=== PATIENT | male | born 1950 | race Caucasian/White ===

== ENCOUNTER → 2019-04-06 | Outpatient (CLI) | payer MEDICARE, OTHER ==
[2019-04-06 09:23] LABS: ABSOLUTE EOSINOPHILS # (AUTO) 0.2 10^3/uL (0.0-0.6); ABSOLUTE LYMPHOCYTES (AUTO) 1.8 10^3/uL (0.5-4.7); ABSOLUTE MONOCYTES (AUTO) 0.5 10^3/uL (0.1-1.4); ABSOLUTE NEUT (AUTO) 3.6 10^3/uL (1.7-8.2); BASOPHILS % (AUTO) 0.3 % (0-2); EOSINOPHILS % (AUTO) 2.8 % (0-6); HEMATOCRIT 44.5 % (37.9-51.0); HEMOGLOBIN 15.2 g/dL (13.5-17.0); MEAN CORPUSCULAR HEMOGLOBIN 29.1 pg (27.0-33.4); MEAN CORPUSCULAR VOLUME 86 fl (80-97); MONOCYTES % (AUTO) 8.2 % (3-13); PLATELET COUNT 235 10^3/uL (150-450); RED BLOOD COUNT 5.21 10^6/uL (4.35-5.55); RED CELL DISTRIBUTION WIDTH 13.5 % (11.5-14.0); SEGMENTED NEUTROPHILS % (AUTO) 59.7 % (42-78); TOTAL CELLS COUNTED % (AUTO) 100 %
--- NOTE | 2019-04-06 09:27 | RADIOLOGY REPORT (SQ) ---
EXAM DESCRIPTION: CHEST PA/LATERAL COMPLETED DATE/TIME: 04/06/2019 9:13 am REASON FOR STUDY: PRE-OP COMPARISON: None. EXAM PARAMETERS: NUMBER OF VIEWS: two views TECHNIQUE: Digital Frontal and Lateral radiographic views of the chest acquired. RADIATION DOSE: NA LIMITATIONS: none FINDINGS: LUNGS AND PLEURA: No opacities, masses or pneumothorax. No pleural effusion. MEDIASTINUM AND HILAR STRUCTURES: No masses or contour abnormalities. HEART AND VASCULAR STRUCTURES: Heart normal size. No evidence for failure. BONES: No acute findings. HARDWARE: None in the chest. OTHER: No other significant finding. IMPRESSION: NO SIGNIFICANT RADIOGRAPHIC FINDING IN THE CHEST. TECHNICAL DOCUMENTATION: JOB ID: [id number] [employer]- All Rights Reserved Reading location - IP/workstation name: [email or web address]
[2019-04-06 09:37] LABS: APPEARANCE,URINE CLEAR; BILIRUBIN,URINE NEGATIVE (NEGATIVE); COLOR,URINE YELLOW; GLUCOSE, URINE NEGATIVE (NEGATIVE); KETONES,URINE NEGATIVE (NEGATIVE); LEUKOCYTE ESTERASE,URINE NEGATIVE (NEGATIVE); NITRITE,URINE NEGATIVE (NEGATIVE); PROTEIN,URINE NEGATIVE (NEGATIVE); URINE SPECIFIC GRAVITY 1.012; UROBILINOGEN,URINE NEGATIVE mg/dL (<2.0)
[2019-04-06 09:43] LABS: ANION GAP 8 (5-19); BLOOD UREA NITROGEN 12 mg/dL (7-20); CALCIUM 9.8 mg/dL (8.4-10.2); CARBON DIOXIDE 27 mmol/L (22-30); CHLORIDE 104 mmol/L (98-107); GLUCOSE 92 mg/dL (75-110); POTASSIUM 4.6 mmol/L (3.6-5.0)
--- NOTE | 2019-04-06 13:28 | EKG REPORT ---
SEVERITY:- NORMAL ECG - SINUS RHYTHM : Confirmed by: Ralph Corona MD 06-Apr-2019 13:27:27
== END ==
LOC: OD 08:43
PROVIDERS: ATTEND Orthopaedic Surgery
DX: Z01.812 Encounter for preprocedural laboratory examination (principal); Z01.811 Encounter for preprocedural respiratory examination; Z01.810 Encounter for preprocedural cardiovascular examination; M16.12 Unilateral primary osteoarthritis, left hip
CPT/HCPCS: 36415; 71046; 80048; 81001; 85025; 93005; 93010

== ENCOUNTER 2019-05-02 06:25 | Inpatient (IN) | payer MEDICARE, OTHER ==
[~2019-05-02 06:25] MED LIST: BUPIVACAINE INJ/PF LIPOSOME/PF 266 MG/20 ML SDV INJ PRN; CEFAZOLIN INJ 1 GM VIAL IV PRN; IBUPROFEN 800 MG in NORMAL SALINE 250 ML IV PRN; LACTATED RINGERS 1000 ML IV PRN; LIDOCAINE 0.5% INJ-PF (5 MG/ML) 50 ML SDV SUBCUT PRN; OXYCODONE HCL SR 10 MG TABLET PO PRN; PANTOPRAZOLE SODIUM 20 MG TABLET.DR PO PRN; VANCOMYCIN HCL 1,000 MG in DEXTROSE 5%-WATER 250 ML IV PRN
[2019-05-02] MEDS ORDERED: OXYCODONE HCL SR 10 MG TABLET PO ONE (06:29)
[2019-05-02] MEDS ORDERED: PANTOPRAZOLE SODIUM 20 MG TABLET.DR PO ONE (06:29)
[2019-05-02] MEDS ORDERED: CEFAZOLIN INJ 1 GM VIAL ONE (06:30)
[2019-05-02] MEDS ORDERED: MIDAZOLAM 2 MG/2 ML INJ ONE (07:40)
[2019-05-02] MEDS ORDERED: DEXMEDETOMIDINE INJ 80 MCG/20 ML VIAL IV ONE (07:41)
[2019-05-02] MEDS ORDERED: PROPOFOL INJ 200 MG/20 ML VIAL IV ONE ×2 (07:41→09:38)
[2019-05-02] MEDS ORDERED: PHENYLEPHRINE HCL INJ/PF 10 MG/1 ML SDV ONE (08:13)
[2019-05-02] MEDS ORDERED: GLYCOPYRROLATE 1 MG/5 ML VIAL ONE (08:13)
[2019-05-02] MEDS ORDERED: TRANEXAMIC ACID INJ/PF 1,000 MG/10 ML SDV ONE ×2 (09:04→12:18)
[2019-05-02] MEDS ORDERED: KETAMINE HCL INJ 500 MG/10 ML VIAL ONE (09:38)
[2019-05-02] MEDS: BUPIVACAINE INJ/PF LIPOSOME/PF 266 MG/20 ML SDV ONE ×2 (09:55→10:04)
[2019-05-02] MEDS ORDERED: ZOLPIDEM TARTRATE 5 MG TABLET PO PRN (10:23)
[2019-05-02] MEDS ORDERED: RINGERS SOLUTION,LACTATED 1,000 ML IV PRN (10:23)
[2019-05-02] MEDS ORDERED: MAG HYDROX/AL HYDROX/SIMETH SUSP 30 ML UDCUP PO PRN (10:23)
[2019-05-02] MEDS ORDERED: ACETAMINOPHEN 325 MG TABLET PO PRN (10:23)
[2019-05-02] MEDS ORDERED: ONDANSETRON 4 MG TAB.RAPDIS PO PRN (10:23)
[2019-05-02] MEDS ORDERED: DIPHENHYDRAMINE HCL 50 MG/ML VIAL IV PRN ×2 (10:23→11:15)
[2019-05-02] MEDS ORDERED: ONDANSETRON HCL INJ/PF 4 MG/2 ML SDV IV PRN (10:23)
--- NOTE | 2019-05-02 10:23 | Operative Report ---
Operative Report DATE OF SURGERY: 05/02/19 PREOPERATIVE DIAGNOSIS: Left hip arthritis OPERATION: Left hip arthroplasty SURGEON: ELIAS RUBIO ANESTHESIA: Spinal TISSUE REMOVED OR ALTERED: Femoral head to pathology ESTIMATED BLOOD LOSS: 150 PROCEDURE: Implants used: Femur: [place] Accolade 2 stem, size 9 Acetabular shell: 56 mm acetabular shell Liner: 36 mm flat cross-link polyethylene liner Head: 36 mm chrome cobalt head standard neck The patient is placed in a right lateral decubitus position on the operating table. The left lower extremity and hindquarter is prepped and draped in a sterile fashion. A curvilinear incision was made over the greater trochanter a posterior approach the hip was taken. The femoral head is dislocated and the femoral neck transected using an oscillating saw. Attention was next turned to the acetabulum. Soft tissues cleared off the acetabulum using electrocautery. The acetabulum was then prepared using a series of hemispherical reamers until a 56 millimeters reamer is seated. Subsequently a 56 millimeters Racheal titanium hemispherical shell is impacted into position. A standard flat 36 millimeters cross-link liner is impacted into the shell. Attention was next turned to the femur. Access is gained to the femoral canal using a box osteotome to the piriformis fossa. The femur is then prepared using a series of broaches until a number 9 broach is seated. A trial reduction was now performed using a 36 millimeters head with standard neck. Preoperative leg length was recreated and is excellent anterior posterior stability. A decision was made to proceed with the above construct. All trial implants were removed. The wound is irrigated with pulsed lavage. A number 9 stem is impacted into the femoral canal. A trial reduction was again performed with a 36 mm head and a standard neck. Findings as previously. The hip was dislocated one last time and the final chrome-cobalt head is impacted onto the trunnion. The hip was reduced. Wound is copiously irrigated with pulsed lavage. Sent closed in layers using interrupted Vicryl followed by steve. A sterile dressing is applied and the patient's returned to recovery room in satisfactory patient.
[2019-05-02] MEDS ORDERED: MORPHINE SULFATE 10 MG/ML INJ IV PRN (11:15)
[2019-05-02] MEDS ORDERED: FENTANYL CITRATE INJ/PF 100 MCG/2 ML AMPUL IV PRN ×3 (11:15)
[2019-05-02] MEDS ORDERED: PROMETHAZINE HCL INJ 25 MG/1 ML VIAL IV PRN ×2 (11:15)
[2019-05-02] MEDS ORDERED: MEPERIDINE HCL/PF INJ 25 MG/1 ML DISP.SYRIN IV PRN (11:15)
[2019-05-02] MEDS ORDERED: TRANEXAMIC ACID INJ/PF 1,000 MG/10 ML SDV IV ONE (12:00)
[2019-05-02] MEDS: FENTANYL CITRATE INJ/PF 100 MCG/2 ML AMPUL ONE ×2 (12:10→12:25)
--- NOTE | 2019-05-02 12:41 | RADIOLOGY REPORT (SQ) ---
EXAM DESCRIPTION: PELVIS AP COMPLETED DATE/TIME: 05/02/2019 11:23 am REASON FOR STUDY: Post Op Long Cassette in PACU M16.12 UNILATERAL PRIMARY OSTEOARTHRITIS, LEFT HIP COMPARISON: None. NUMBER OF VIEWS: One view TECHNIQUE: AP Pelvis LIMITATIONS: None. FINDINGS: MINERALIZATION: Normal. HIPS: There is a left hip arthroplasty in good position. Mild to moderate degenerative joint changes are present in the right hip. No acute fracture or dislocation. PELVIS AND SACRUM: No acute fracture or dislocation. No worrisome bone lesions. PUBIS AND ISCHIUM: No acute fracture. LOWER LUMBAR SPINE: Mild degenerative changes at the lumbosacral junction. SOFT TISSUES: No findings. OTHER: No other significant finding. IMPRESSION: Left hip arthroplasty in good position. Degenerative joint disease in the right hip. L ower lumbar degenerative changes. COMMENT: Pelvic fractures are often occult on plain radiographs. If strong clinical suspicion for f racture, recommend CT or MR. TECHNICAL DOCUMENTATION: JOB ID: [id number] [employer]- All Rights Reserved Reading location - IP/workstation name: [email or web address]
[2019-05-02] MEDS: OXYCODONE HCL IR 5 MG TABLET PO PRN (15:47)
[2019-05-02] MEDS: SENNOSIDES/DOCUSATE 8.6-50 MG 1 EACH TABLET PO SCH (17:16)
[2019-05-02] MEDS: IBUPROFEN 800 MG in NORMAL SALINE 250 ML IV SCH (17:16)
[2019-05-02] MEDS: PREGABALIN 75 MG CAPSULE PO SCH (17:16)
[2019-05-02] MEDS: OXYCODONE HCL SR 10 MG TABLET PO SCH (21:19)
[2019-05-02] MEDS ORDERED: VANCOMYCIN HCL 1,000 MG in DEXTROSE 5%-WATER 250 ML IV ONE (22:23)
[2019-05-03] MEDS: IBUPROFEN 800 MG in NORMAL SALINE 250 ML IV SCH ×2 (01:12→10:28)
[2019-05-03] MEDS: OXYCODONE HCL IR 5 MG TABLET PO PRN (05:25)
[2019-05-03 05:29] LABS: HEMATOCRIT 41.3 % (37.9-51.0); HEMOGLOBIN 14.3 g/dL (13.5-17.0); MEAN CORPUSCULAR HEMOGLOBIN 29.5 pg (27.0-33.4); MEAN CORPUSCULAR HGB CONC 34.7 g/dL (32.0-36.0); MEAN CORPUSCULAR VOLUME 85 fl (80-97); PLATELET COUNT 247 10^3/uL (150-450); RED BLOOD COUNT 4.85 10^6/uL (4.35-5.55); RED CELL DISTRIBUTION WIDTH 13.3 % (11.5-14.0); WHITE BLOOD COUNT 12.6 10^3/uL (4.0-10.5)
[2019-05-03 05:57] LABS: ANION GAP 11 (5-19); BLOOD UREA NITROGEN 18 mg/dL (7-20); CALCIUM 9.5 mg/dL (8.4-10.2); CARBON DIOXIDE 24 mmol/L (22-30); CHLORIDE 101 mmol/L (98-107); GLUCOSE 126 mg/dL (75-110); POTASSIUM 4.9 mmol/L (3.6-5.0)
[2019-05-03] MEDS ORDERED: PANTOPRAZOLE SODIUM 40 MG TABLET.DR PO SCH (06:00)
--- NOTE | 2019-05-03 07:22 | PDOC DISCHARGE SUMMARY ---
Impression - Admit/DC Date/PCP Admission Date/Primary Care Provider: 05/02/19 06:25 BIPIN BRONSON MD Discharge Date: 05/03/19 - Discharge Diagnosis (1) Arthritis of left hip Is this a current diagnosis for this admission?: Yes - Assessment Summary: 68-year-old white male with progressive left hip pain and functional disability second osteoarthritis is admitted for elective left hip arthroplasty. - Additional Information Resuscitation Status: Full Code Discharge Diet: Regular Discharge Activity: Balance Activity w/Rest, No tub bath Referrals: ELIAS VILLAVICENCIO MD [ACTIVE STAFF] - 05/17/19 9:15 am Home Medications: Citalopram Hydrobromide [Celexa] 20 mg PO QPM 09/17/14 Cholecalciferol (Vitamin D3) [Vitamin D3 1000 Unit Tablet] 1,000 unit PO QPM 04/11/19 Multivit-Min/FA/Lycopen/Lutein [Centrum Silver Men Tablet] 1 tab PO QPM 04/11/19 [place]-3 Fatty Acids/Fish Oil [Fish Oil 1,000 mg Capsule] 2 cap PO QPM 04/11/19 Levothyroxine Sodium 50 mcg PO QPM 05/02/19 History of Present Illiness History of Present Illness: PEYTON KEY is a 68 year old male 68-year-old white male with progressive left hip pain and functional disability second osteoarthritis. Patient is admitted for elective left hip arthroplasty. Hospital Course Hospital Course: Patient admitted through the operating where he undergoes uncomplicated left hip arthroplasty. Is returned to floor in satisfactory condition. He seen by physical therapy. He ambulates 300 feet on the day of surgery. The first postoperative morning the patient is quite mobile on his own. His left hip dressing demonstrates 2 small areas of dried drainage. Leg lengths are equal. Distal neurovascular examination is intact. Physical Exam Vital Signs: Temp Pulse Resp BP Pulse Ox 36.3 C 73 18 116/63 96 05/03/19 02:00 05/03/19 02:00 05/03/19 02:00 05/02/19 19:57 05/03/19 02:00 Intake & Output 05/02/19 05/03/19 05/04/19 06:59 06:59 06:59 Intake Total 0 9879 Output Total 3309 Balance 0 6570 Weight 126.8 kg General appearance: PRESENT: no acute distress, mild distress Head exam: PRESENT: normocephalic Respiratory exam: PRESENT: unlabored Cardiovascular exam: PRESENT: RRR Pulses: PRESENT: +1 pedal pulses bilateral Vascular exam: PRESENT: normal capillary refill Rectal exam: PRESENT: deferred Musculoskeletal exam: PRESENT: other - As above Neurological exam: PRESENT: alert, awake, oriented to person, oriented to place, oriented to time, oriented to situation. ABSENT: motor sensory deficit Psychiatric exam: PRESENT: appropriate affect, normal mood. ABSENT: homicidal ideation, suicidal ideation Skin exam: PRESENT: dry, intact, warm. ABSENT: cyanosis, rash Results Laboratory Results: WBC 12.6 10^3/uL (4.0-10.5) H 05/03/19 05:08 RBC 4.85 10^6/uL (4.35-5.55) 05/03/19 05:08 Hgb 14.3 g/dL (13.5-17.0) 05/03/19 05:08 Hct 41.3 % (37.9-51.0) 05/03/19 05:08 MCV 85 fl (80-97) 05/03/19 05:08 MCH 29.5 pg (27.0-33.4) 05/03/19 05:08 MCHC 34.7 g/dL (32.0-36.0) 05/03/19 05:08 RDW 13.3 % (11.5-14.0) 05/03/19 05:08 Plt Count 247 10^3/uL (150-450) 05/03/19 05:08 Sodium 136.3 mmol/L (137-145) L 05/03/19 05:08 Potassium 4.9 mmol/L (3.6-5.0) 05/03/19 05:08 Chloride 101 mmol/L (98-107) 05/03/19 05:08 Carbon Dioxide 24 mmol/L (22-30) 05/03/19 05:08 Anion Gap 11 (5-19) 05/03/19 05:08 BUN 18 mg/dL (7-20) 05/03/19 05:08 Creatinine 1.12 mg/dL (0.52-1.25) 05/03/19 05:08 Est GFR ( Amer) > 60 (>60) 05/03/19 05:08 Est GFR (MDRD) Non-Af > 60 (>60) 05/03/19 05:08 Glucose 126 mg/dL (75-110) H 05/03/19 05:08 Calcium 9.5 mg/dL (8.4-10.2) 05/03/19 05:08 Blood Type A POSITIVE 05/02/19 06:57 Antibody Screen NEGATIVE 05/02/19 06:57 Impressions: Pelvis X-Ray 05/02/19 10:25 IMPRESSION: Left hip arthroplasty in good position. Degenerative joint disease in the right hip. Lower lumbar degenerative changes. Plan Plan of Treatment: Discharge home on a weightbearing as tolerated ambulatory program with physical therapy and DME. Follow-up with Dr. Villavicencio and [facility] for [facility] in 2 weeks for wound inspection. Time Spent: Less than 30 Minutes Stroke Is this a Stroke Patient?: No Stroke Pt being discharged on Anti-thrombolytic therapy?: Yes Acute Heart Failure - Is this a Heart Failure Patient?: No
[2019-05-03 07:51] VITALS: BP 129/80
[2019-05-03] MEDS: PREGABALIN 75 MG CAPSULE PO SCH (09:12)
[2019-05-03] MEDS: SENNOSIDES/DOCUSATE 8.6-50 MG 1 EACH TABLET PO SCH (09:12)
[2019-05-03] MEDS: OXYCODONE HCL SR 10 MG TABLET PO SCH (09:13)
[2019-05-03] MEDS ORDERED: ASPIRIN 81 MG TABLET, ENT COATED PO SCH (10:00)
[2019-05-03] MEDS ORDERED: PRENATAL VITAMIN W DHA CAPSULE PO SCH (10:00)
== END 2019-05-03 11:35 | disposition home health service (06) | DRG 470 ==
LOC: INOR 06:25 → EDSTATUS 08:45 → 4W 13:08
PROVIDERS: ADMIT Orthopaedic Surgery; ATTEND Orthopaedic Surgery
PROC: 0SRB02A Replacement of Left Hip Joint with Metal on Polyethylene Synthetic Substitute, Uncemented, Open Approach (ICD-10-PCS; principal; 2019-05-02 08:45)
DX: M16.12 Unilateral primary osteoarthritis, left hip (principal); F32.9 Major depressive disorder, single episode, unspecified; E78.5 Hyperlipidemia, unspecified; G47.30 Sleep apnea, unspecified; E66.3 Overweight; Z79.899 Other long term (current) drug therapy; Z87.891 Personal history of nicotine dependence
CPT/HCPCS: 01214; 36415; 72170; 80048; 85027; 86850; 86900; 86901; 88304; 88311; 94799; C1776; C9290; J0690; J1741; J2250; J2370; J2704; J3010; J3370; J3490; J7050; J7060